=== PATIENT | female | born 1975 | race Caucasian/White ===

== ENCOUNTER 2017-11-18 20:02 | Emergency (ER) | payer OTHER ==
[~2017-11-18] VITALS: Ht 162.6 cm; Wt 54.4 kg
[~2017-11-18 20:02] MED LIST: CIPROFLOXACIN500 M1 PO; NOHOMEMEDICATIONS; ZOFRAN ODT4 MG PO; ZOFRAN4 MG PO; ZOMIG ZMT2.5 MG PO
[2017-11-18] MEDS ORDERED: IMITREX100 MG PO (20:16)
[2017-11-18] MEDS ORDERED: SYNTHROID112 MCG PO (20:16)
[2017-11-18 21:03] LABS: INFLUENZA A ANTIGEN None Detected (None Detect); INFLUENZA B ANTIGEN None Detected (None Detect)
[2017-11-18] MEDS ORDERED: PHENERGAN 25 MG25 M1 PO (21:20)
[2017-11-18] MEDS ORDERED: OSELB75 PO (21:20)
[2017-11-18 21:36] VITALS: BP 119/73
== END 2017-11-18 21:38 | disposition home or self-care (01) ==
LOC: M.ERS 20:02
PROVIDERS: Physician Assistant
DX: B34.9 Viral infection, unspecified (principal); K52.9 Noninfective gastroenteritis and colitis, unspecified; G43.909 Migraine, unspecified, not intractable, without status migrainosus; Z90.89 Acquired absence of other organs

== ENCOUNTER 2021-12-01 13:00 | Emergency (ER) | payer OTHER ==
[~2021-12-01] VITALS: Ht 162.6 cm; Wt 56.7 kg
[~2021-12-01 13:00] MED LIST changes: +IMITREX100 MG PO; +OSELB75 PO; +PHENERGAN 25 MG25 M1 PO; +SYNTHROID112 MCG PO
[2021-12-01 13:57] LABS: CALCIUM 8.3 mg/dL (8.5-10.1); CREATININE 0.7 mg/dL (0.6-1.3); POTASSIUM 3.7 mmol/L (3.5-5.1)
[2021-12-01 14:02] LABS: ALBUMIN 3.4 g/dL (3.4-5.0); TOTAL BILIRUBIN 0.3 mg/dL (<0.1-1.0); TOTAL PROTEIN 6.8 g/dL (6.4-8.2)
[2021-12-01 14:06] LABS: ABSOLUTE LYMPHOCYTES 0.9 thou/uL (0.8-5.3); ABSOLUTE MONOCYTES 0.3 thou/uL (0.0-1.2); BASOPHILS 0.4 %; EOSINOPHILS 0.5 %; HEMATOCRIT 37.4 % (37.0-47.0); HEMOGLOBIN 12.6 gm/dL (12.0-15.0); LYMPHOCYTES 27.1 %; MCH 30.1 pg (26.0-34.0); MCHC 33.8 g/dL (28.0-37.0); MCV 89.1 fL (80.0-100.0); MONOCYTES 8.7 %; MPV 10.3 fl. (7.2-11.1); NUCLEATED RBCS 0 /100WBC; PLATELET COUNT* 165 thou/uL (150-400); POLYS 63.3 %; RDW-CV 13.6 % (10.5-14.5); WBC 3.2 thou/uL (4.0-11.0)
[2021-12-01] MEDS ORDERED: AMOX TR-K CLV1 EAC4 PO (14:21)
[2021-12-01 14:33] VITALS: BP 139/70
== END 2021-12-01 14:34 | disposition home or self-care (01) ==
LOC: M.ERS 13:00
PROVIDERS: Physician Assistant
DX: U07.1 COVID-19 (principal); J32.0 Chronic maxillary sinusitis; B96.89 Other specified bacterial agents as the cause of diseases classified elsewhere; G43.909 Migraine, unspecified, not intractable, without status migrainosus